=== PATIENT | male | born 1950 | race Caucasian/White ===

== ENCOUNTER 2024-09-01 20:58 | Inpatient (IN) | payer MEDICARE, OTHER, SELFPAY ==
[2024-09-01] VITALS (7 sets, daily range): BP systolic 134–170; BP diastolic 69–111; BMI 32.1; BMI 30.1
--- NOTE | 2024-09-01 15:53 | ED.GENMED ---
ED Provider Triage
<Awilda Yoon PA-C - Last Filed: 09/01/24 16:02>
-
Patient seen by provider in Triage?: Seen in Triage
Attestation: A medical screening examination has been initiated by a qualified medical provider. Based on the assessment performed at this time, it has been determined that an emergent medical condition may exist and the patient has been informed
that further medical evaluation and possible additional diagnostic testing may be needed.
HPI: 73yoM here after a syncopal episode about 1 hour ago. He does not remember what happened. 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 He does not remember how he got there. Blood coming from head and
coworker stated he was disoriented. 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
GENERAL: Alert , in no apparent distress
EYE: No visual abnormalities.
NECK: Trachea midline
ENT: No visible abnormalities.
LUNGS: No acute respiratory distress
NEUROLOGICAL: Alert and oriented
SKIN: Skin intact. No visible changes.
MUSCULOSKELETAL: Moving extremities normally
PSYCH: Normal and appropriate interaction.
This is a medical evaluation conducted in person to initiate diagnostic evaluation and provide initial therapeutics. Please see further documentation by the treating clinician.
Cardiac labs, EKG, and CT head ordered. Pacemaker/ICD interrogated by nursing staff.
History of Present Illness
<Awilda Yoon PA-C - Last Filed: 09/01/24 16:02>
General
Chief Complaint: AICD Problem
Time Seen by Provider: 09/01/24 16:13
<Leo Osborn Jr., PA-C - Last Filed: 09/01/24 19:54>
General
Source: patient and spouse
Exam Limitations: none
Nursing documentation reviewed up to this point in time: agreed with
History of Present Illness
History of Present Illness:
73-year-old male past medical history of cardiomyopathy, CHF, hypertension hyperlipidemia, pacemaker and defibrillator in place presenting to the emergency department after syncopal episode prior to arrival that was very abrupt with no preceding
symptoms. Woke up with some mild chest pain and also hit his head when he fell. He claims this was similar to when he had his AICD go off in the past.
Past History
<Awilda Yoon PA-C - Last Filed: 09/01/24 16:02>
Past History
ED Past Medical History: Arrthythmia, CHF, HTN, Hypercholesterolemia, Valvular disease and Other (sleep apnea, BPH with intermittent urine retention requiring Bravo catheter)
ED Past Surgical History: Cardiac and Other (Hernia repair, mitral valve repair, VT ablation)
Social History
Tobacco: Non-smoker
Alcohol: None
Drug: None
Personal:
Living: with family
Employment: Employed
Family History
Family History: Other (Noncontributory)
Review of Systems
<Leo Osborn Jr., PA-C - Last Filed: 09/01/24 19:54>
Review of Systems
Allergies reviewed?: Yes
All Other Systems: ROS reviewed and negative except as documented in HPI and ROS
Phy Exam
<Leo Osborn Jr., PA-C - Last Filed: 09/01/24 19:54>
Physical Exam
Physical Exam:
GENERAL: Alert , in no apparent distress
EYE: pupils equal and reactive
NECK: Supple, no significant adenopathy.
ENT: o/p clr, mmm.
CARDIAC: Regular rate and rhythm .
LUNGS: Clear breath sounds bilaterally, no acute respiratory distress, no wheezes/rales/rhonchi
ABDOMEN: Soft, without focal tenderness, no r/g, no cvat
NEUROLOGICAL: Alert and oriented, no focal neuro deficits 5-5 upper and lower extremity strength normal sensation when palpating bilaterally normal finger-nose and [id number]-il-kwfu.
SKIN: Warm and dry, skin intact.
MUSCULOSKELETAL: No edema, well perfused.
PSYCH: Normal and appropriate interaction.
Course
<Awilda Yoon PA-C - Last Filed: 09/01/24 16:02>
Orders/Labs/Results
Orders:
Orders
09/01/24 15:27
ECG [Electrocardiogram (*1)] Urgent
Reason for Study: Other
Other Reason for Exam: Defib shock
EKG- Treatment ONCE
09/01/24 15:59
CT Head W/o Iv Contrast Urgent
Comment:
Reason For Exam: Fall w/ head injury
09/01/24 16:03
Interrogate Pacemaker- Treatment ONCE
09/01/24 16:06
Complete Blood Count/With Diff Urgent
Comprehensive Metabolic Panel Urgent
Magnesium Urgent
Troponin I Urgent
09/01/24 16:10
Interrogate Pacemaker- Treatment ONCE
Abnormal Lab Results
09/01/24
16:06
MCH 31.4 H pg
(27.0-31.0)
Absolute Lymphs (auto) 1.0 L 10^3/uL
(1.2-3.4)
Lymphocytes % 16.4 L %
(20.5-51.1)
BUN 24 H mg/dl
(9-20)
Creatinine 1.4 H mg/dL
(0.7-1.3)
Glucose 128 H mg/dl
(70-99)
09/01/24 16:06
09/01/24 16:06
Vital Signs
Initial and Last Documented VS:
Initial Vital Signs
Temp Pulse Resp BP Pulse Ox
97.9 F 48 19 170/111 97
09/01/24 15:36 09/01/24 15:36 09/01/24 15:36 09/01/24 15:36 09/01/24 15:36
Last Documented Vital Signs
Temp Pulse Resp BP Pulse Ox
98.8 F 75 20 155/81 98
09/01/24 16:00 09/01/24 18:36 09/01/24 18:36 09/01/24 18:36 09/01/24 16:00
<Leo Osborn Jr., PA-eTe - Last Filed: 09/01/24 19:54>
Orders/Labs/Results
Orders:
Orders
09/01/24 15:27
ECG [Electrocardiogram (*1)] Urgent
Reason for Study: Other
Other Reason for Exam: Defib shock
EKG- Treatment ONCE
09/01/24 15:59
CT Head W/o Iv Contrast Urgent
Comment:
Reason For Exam: Fall w/ head injury
09/01/24 16:03
Interrogate Pacemaker- Treatment ONCE
09/01/24 16:06
Complete Blood Count/With Diff Urgent
Comprehensive Metabolic Panel Urgent
Magnesium Urgent
Troponin I Urgent
09/01/24 16:10
Interrogate Pacemaker- Treatment ONCE
Abnormal Lab Results
09/01/24
16:06
MCH 31.4 H pg
(27.0-31.0)
Absolute Lymphs (auto) 1.0 L 10^3/uL
(1.2-3.4)
Lymphocytes % 16.4 L %
(20.5-51.1)
BUN 24 H mg/dl
(9-20)
Creatinine 1.4 H mg/dL
(0.7-1.3)
Glucose 128 H mg/dl
(70-99)
09/01/24 16:06
09/01/24 16:06
Vital Signs
Initial and Last Documented VS:
Initial Vital Signs
Temp Pulse Resp BP Pulse Ox
97.9 F 48 19 170/111 97
09/01/24 15:36 09/01/24 15:36 09/01/24 15:36 09/01/24 15:36 09/01/24 15:36
Last Documented Vital Signs
Temp Pulse Resp BP Pulse Ox
98.8 F 75 20 155/81 98
09/01/24 16:00 09/01/24 18:36 09/01/24 18:36 09/01/24 18:36 09/01/24 16:00
<Leo Osborn Jr., PA-C - Last Filed: 09/01/24 19:54>
MDM/Problems Addressed
MDM/Problems Addressed:
73-year-old male presenting to the emergency department today after syncopal episode. Lost consciousness abruptly with no preceding symptoms. Pacemaker interrogated showing episode of V-fib with 1 shock delivered. Back into normal rhythm after.
Vital signs normal here labs unremarkable other than slightly elevated creatinine level of 1.[address] normal. Case discussed with cardiology. Admitted to medicine service.
<Leo Osborn Jr., PA-C - Last Filed: 09/01/24 19:54>
*Critical Care Note
Total Time (30-74mins, 75-104mins- exclusive of procedures): Not Applicable
ED Attending Note
<Awilda Yoon PA-C - Last Filed: 09/01/24 16:02>
-
Portions of this chart may have been created with voice recognition software.� Occasional wrong word or��sound alike� substitutions may have occurred due to the inherent limitations of voice recognition software.
Discharge Plan
Departure
Patient Disposition: Admit
Date of Disposition: 09/01/24
Time of Disposition: 19:53
Admit to: Telemetry
Admit to doctor: Filippo
Presentation/result/management discussed w/ accepting MD/DO: Hospitalist
Patient with high blood pressure during this ER visit?: No
Condition: Good
Covid-19: Not Applicable
Discharge Problem:
Ventricular fibrillation
Prescriptions:
No Action
atorvastatin 20 MG tablet
10 mg PO DAILY
Patient Comments:
acetaminophen 325 MG tablet
650 mg PO Q6HPRN PRN (Reason: mild pain, fever, headache) 0RF
Curamin
1,800 mg PO BID
lisinopril 10 MG tablet
20 mg PO BID
echinacea [Immunacea] 480 ML liquid
1 applic topical DAILYPRN PRN (Reason: skin spot healing )
carvedilol [Coreg] 25 MG tablet
25 mg PO BID
aspirin 81 MG tablet,delayed release (DR/EC)
81 mg PO DAILY
tamsulosin [Flomax] 0.4 MG capsule
0.4 mg PO HS
tamsulosin 0.4 MG capsule
0.4 mg PO HS 0RF
dofetilide 250 MCG capsule
250 mcg PO Q12 Qty: 60 11RF
amoxicillin-pot clavulanate 1 TABLET tablet
1 tab PO Q12 Qty: 14 0RF
cefuroxime axetil 500 mg tablet
500 mg PO BID 7 Days Qty: 14 0RF
amoxicillin-pot clavulanate 875-125 mg tablet
1 tab PO BID 7 Days Qty: 14 0RF
Referrals:
Mohini Moser MD [Family Provider] -
Interventions
Interventions:
*Risk Screen - Suicide Last Done: 09/01/24 16:31
*General Assessment Last Done: 09/01/24 16:28
*Neglect/Abuse Screening Last Done: 09/01/24 16:32
*ED COVID-19 Vaccine History Last Done: 09/01/24 16:27
ED- Cardiac Assessment Last Done: 09/01/24 16:29
Discharge Date and Time
Print Language: MALAYSIAN
[2024-09-01 16:13] LABS: % Basophils 0.5 % (0-2); % Eosinophils 0.8 % (0-6); % Immature Granulocytes 0.3 % (0-0.5); % Lymphocytes 16.4 % (20.5-51.1); % Monocytes 7.3 % (1.7-9.3); % Neutrophils 74.7 % (42.2-75.2); Absolute Eosinophils 0.1 10^3/uL (0-0.7); Absolute Monocytes 0.4 10^3/uL (0.1-0.6); Absolute Neutrophils 4.5 10^3/uL (1.4-6.5); Hematocrit 43.8 % (39.0-52.0); Hemoglobin 15.4 g/dL (13.0-18.0); Mean Corp Hgb Conc. 35.2 g/dL (33.0-37.0); Mean Corpuscular Hgb 31.4 pg (27.0-31.0); Mean Corpuscular Volume 89.4 fL (80.0-94.0); Mean Platelet Volume 9.5 fL (7.4-10.4); Nucleated Red Blood Cells % 0 % (-); Platelet Count 159 10^3/uL (130-400); Red Cell Dist. Width 12.7 % (11.5-14.5); White Blood Cell Count 6.1 10^3/uL (4.8-10.8)
[2024-09-01 16:32] LABS: ALT (SGPT) 37 U/L (0-50); AST (SGOT) 47 U/L (17-59); Albumin 4.5 g/dl (3.5-5.0); Alkaline Phosphatase 72 U/L (38-126); Blood Urea Nitrogen 24 mg/dl (9-20); Calcium 9.4 mg/dl (8.4-10.2); Carbon Dioxide 28 mmol/L (22-30); Chloride 103 mmol/L (98-107); Estimated Creatinine Clearance 58 ml/min; Glucose 128 mg/dl (70-99); Magnesium 1.7 mg/dl (1.6-2.3); Potassium 4.4 mmol/L (3.5-5.1); Sodium 141 mmol/L (135-145); Total Bilirubin 0.8 mg/dl (0.2-1.3); Total Protein 6.8 g/dl (6.3-8.2); eGFR 53.74
[2024-09-01 16:43] LABS: Troponin I 0.018 ng/ml
--- NOTE | 2024-09-01 19:52 | HPS.HSE ---
Addendum entered and electronically signed by Danielito Crawford MD 09/01/24 20:40:
I saw and examined the patient.
The CLAY ROASTER or PA's note was reviewed and I agree with the note.
Comment:
73M HX chr HFrEF, CM, GASTON, MVR, PVC , induced ventricular fibrillation on AICD presented to us with syncopal episode.
Syncope likely from VF : S/p AICD shock
HX PVC-induced VF requiring ICD shocks, 06/2020.
HX substrate-based VT ablation, 10/05/2020.
- NEG HCT
-EKG: in sinus rhythm atrial-sensed ventricular-paced complexes wih frequent PVCs
- c/w Tikosyn
- c/w ATTENDANT HONOR BAR metoprolol
- DCA card consulted
DVT Px: LMWH
Full code
IP TLM
Original Note:
Family Physician
-
Family Physician: Mohini Moser
Chief Complaint
-
syncopal episode
History of Present Illness
73yoM with PMh for htn, GASTON, mitral valve repair, cardiomyopathy, CHF, PVC induced ventricular fibrillation on AICD presented to us with syncopal episode. pacer interrogated in ER showing ventricular fibrillation prior to the syncopal episode.his
AICD was fired once. since the fall, he has mid sternum to left sided chest pain which is worse with movement. abrasion noted on his forehead and b/l knee. denied any NOWAK. denied fever, chills, sob. denied abdominal pain,n,v,d. denied dysuria or
hematuria.
admitting for further management.
Medical History
Past Medical History
Past Medical History: Reports Other
Additional Past Medical History:
GASTON
pulmonary HTN
BPH
left pleural effusion
HTN
ischemic cardiomyopathy
cardiomyopathy
Past Surgical History: Reports Other
Additional Past Surgical History:
b/k knee replacement
hernia surgery
cardiac ablation
thoracentesis
Social History
Tobacco: Non-smoker
Alcohol: None
Drug: None
Personal:
Living: With Family
Employment: Employed
Family History
Family History: Not pertinent
Allergies / Home Medications
Allergies reflects when Allergies were last updated in [employer].
Home Medications with original date entered in [employer]
Allergy/Medication List:
Allergies
Allergy/AdvReac Type Severity Reaction Status Date / Time
No Known Allergies Allergy Verified 09/01/24 15:41
Home Medications
atorvastatin 20 mg tablet 10 mg PO DAILY High cholesterol 12/10/18
acetaminophen 325 mg tablet 650 mg (2 x 325 mg) PO Q6HPRN PRN mild pain, fever, headache 12/23/18
Curamin 1,800 mg PO BID Supplement 07/16/19
aspirin 81 mg tablet,delayed release 81 mg PO DAILY Blood clot prevention/tx 04/18/21
carvedilol 25 mg tablet (Coreg) 25 mg PO BID Blood pressure 04/18/21
echinacea (Immunacea) 1 applic topical DAILYPRN PRN skin spot healing 04/18/21
lisinopril 10 mg tablet 20 mg PO BID Blood pressure 04/18/21
tamsulosin 0.4 mg capsule (Flomax) 0.4 mg PO HS Urinary issue 04/18/21
dofetilide 250 mcg capsule 250 mcg PO Q12 Arrhythmia #60 caps 04/20/21
tamsulosin 0.4 mg capsule 0.4 mg PO HS 04/20/21
amoxicillin 875 mg-potassium clavulanate 125 mg tablet 1 tab PO Q12 #14 tabs 11/12/21
cefuroxime axetil 500 mg tablet 500 mg PO BID 7 days #14 tabs 09/15/22
amoxicillin 875 mg-potassium clavulanate 125 mg tablet 1 tab PO BID 7 days #14 tabs 11/21/23
Review of Systems
-
Constitutional: Reports No Symptoms
EENT: Reports No Symptoms
Respiratory: Reports No Symptoms
Cardiac: Reports No Symptoms
Abdomen/GI: Reports No Symptoms
: Reports No Symptoms
Musculoskeletal: Reports No Symptoms
Skin: Reports No Symptoms
Neurological: Reports No Symptoms
Endocrine: Reports No Symptoms
Hematologic/Lymphatic: Reports No Symptoms
Psych: Reports No Symptoms
Physical Exam
Vital Signs
Vital Signs
Temp Pulse Resp BP Pulse Ox
98.8 F 75 20 155/81 98
09/01/24 16:00 09/01/24 18:36 09/01/24 18:36 09/01/24 18:36 09/01/24 16:00
Physical Exam
General: Well Developed, Well Nourished and No Apparent Distress
HEENT: NormoCephalic, Moist mucous membranes and Atraumatic
Respiratory: Clear
Cardiac: S1/S2 and Regular Rhythm; No Murmur or Rub
GI: Soft, Non Tender, Non Distended and Normal Bowel Sounds; No Organomegaly
Rectal: Deferred by Provider
Musculoskeletal: No Clubbing, No Cyanosis and No Edema
Skin: No Rash
Neuro: AO x 3 and Nonfocal/grossly intact
Psych: Calm
Laboratory Results
-
09/01/24 16:06
09/01/24 16:06
Laboratory Results
Total Bilirubin 0.8 mg/dl (0.2-1.3) 09/01/24 16:06
AST 47 U/L (17-59) 09/01/24 16:06
ALT 37 U/L (0-50) 09/01/24 16:06
Alkaline Phosphatase 72 U/L (38-126) 09/01/24 16:06
Troponin I 0.018 ng/ml 09/01/24 16:06
Data Reviewed
-
CT Scan: Report Reviewed by me
Lab Data: Labs Reviewed by me
Impression/Plan
-
# syncope likely from ventricular fib
#s/p AICD shock
#History of PVC-induced ventricular fibrillation requiring ICD shocks, 06/2020.
#History of substrate-based VT ablation, 10/05/2020.
-cardiology consulted
-Head CT with No acute intracranial abnormality noted.Minimal periventricular small vessel seen disease.Old left thalamic lacunar infarcts.
-EKG with SINUS RHYTHM WITH atrial-sensed ventricular-paced complexes WITH FREQUENT PREMATURE VENTRICULAR COMPLEXES
-Tikosyn continued
-metoprolol continued
#right sided chest pain since the fall likely musculoskeletal
-Tylenol prn for pain
-chest x ray pending.
#cardiomyopathy
#chronic heart failure with preserved EF
#s/p Mitral valve repair
#pulmonary HTn
-ECHO in 2020 with EF of 30-35%
#acute kidney injury likely dehydration
-cr 1.4,BUn 24
-normal saline continued
-BMp in am
#GASTON
-CPAP
#HTn
-hold lisinopril due to Kendra
#HLD
-statin continued
#BPH
-Flomax continued
#DVT prophylaxis
=heparin sq
#CODE status
-full code
[2024-09-01] MEDS: NSS 1000 IV (23:11)
[2024-09-01] MEDS: FLOMAX 0.4 MG PO (23:17)
[2024-09-01] MEDS: LOPRESSOR 50 MG PO (23:17)
[2024-09-01] MEDS: TIKOSYN 250 MCG PO (23:18)
[2024-09-01] MEDS: TIKOSYN PO (23:18)
[2024-09-01] MEDS: TYLENOL 650 MG PO (23:20)
[2024-09-02] VITALS (7 sets, daily range): BP systolic 102–158; BP diastolic 60–93; BMI 29.9
--- NOTE | 2024-09-02 | PTCARENOTE ---
Pt rec'd from ED awake,alert ambulating safely in room. gait steady. Pt placed on fall precautions secondary to fall pre hospital. A/V Paced on telemetry with freq pvc's. PM medications given and IVF started. Pt with c/o sternal discomfort from
fall. Pt also reports h/a behind his eyes. Pt states ' I always get a bad h/a for 24 hrs after my defibrillator goes off'. Tylenol administered.
--- NOTE | 2024-09-02 03:57 | DOWNTIME ---
There was a gauzz Client Retail Link Analyst Downtime on 09/02/2024 from 0100 to 09/02/2024 at 0355. Downtime documentation of patient's care, including medication administrations, has been reconciled in the electronic record per guidelines. Refer to the
patient's paper chart under the miscellaneous tab to see printed paper medication records and downtime forms.
--- NOTE | 2024-09-02 05:22 | PTCARENOTE ---
Pt with no complaints this am. AV paced with pvc's noted. OOB at this time reading chf educational booklet.
[2024-09-02 05:27] LABS: Hematocrit 39.2 % (39.0-52.0); Hemoglobin 13.7 g/dL (13.0-18.0); Mean Corp Hgb Conc. 34.9 g/dL (33.0-37.0); Mean Corpuscular Hgb 32.2 pg (27.0-31.0); Mean Platelet Volume 9.6 fL (7.4-10.4); Platelet Count 146 10^3/uL (130-400); Red Blood Cell Count 4.26 10^6/uL (4.70-6.10); Red Cell Dist. Width 12.7 % (11.5-14.5)
[2024-09-02 05:42] LABS: Blood Urea Nitrogen 21 mg/dl (9-20); Calcium 8.7 mg/dl (8.4-10.2); Carbon Dioxide 29 mmol/L (22-30); Chloride 104 mmol/L (98-107); Estimated Creatinine Clearance 79 ml/min; Glucose 96 mg/dl (70-99); Sodium 142 mmol/L (135-145); eGFR > 60.00
--- NOTE | 2024-09-02 07:40 | CON.CAR ---
Addendum entered and electronically signed by Maikol Flores DO 09/02/24 13:03:
I saw and examined the patient.
The Building Pressure Washer's note was reviewed and I agree with the note.
Comment:
Plan:
Episode of VF with ICD shock X 1. Back to v pacing.
Head CT negative for acute changes
Troponins unremarkable. Last cardiac catheterization 2018 with no significant coronary artery disease.
Discussed with EP, options for rhythm control. Remains with frequent PVCs on telemetry. Increase Tikosyn to 500 mcg every 12 hours and monitor QTc. Rhythm has been paced. He did report some degree of tremor with Tikosyn however tremors were
worse with amiodarone. If the increased Tikosyn dosing fails to suppress recurrent ventricular arrhythmia, he could be considered for repeat VT ablation. Repeat ablation effectiveness may be affected by the fact that suspected scar responsible for
recurrent ventricular arrhythmia likely in close proximity to MV ring repair.
Resume lisinopril as creatinine improved.
Discussed with family at bedside.
Discussed with nursing.
Addendum entered and electronically signed by Abby Mcginnis PA-C 09/02/24 09:52:
confirmed with [employer] rep - ICD is MRI compatible
Original Note:
Consultation
Consultation Request
Date/Time Consultation Performed: 09/02/24
Requesting Provider: Dr. Crawford
Performing Provider: Abby Mcginnis PA-C for Dr. Flores
Reason for Consultation: VF, ICD shock
Medical History
-
Chief Complaint: syncope
History of Present Illness:
Patient is a 73 yo M with PMH of NICM, history of mitral valve repair in 2019, chronic LBBB, s/p BIV ICD, VT s/p ablation 2019, HTN, HLD, GASTON on BIPAP, BPH who presented to after a syncopal episode. He lost consciousness and fell, hitting his
head. He reports as with each prior time he has been shocked by his device (5 total), he has not had any prodrome. Last shock 12/09/22. Upon device interrogation in ER, noted to have VF which was successfully terminated with 1 shock. His VT is felt
to be scar based near prior mitral valve ring. He is chronically on tikosyn 250mcg Q12H. He had previously been on amiodarone however had significant tremor and this was stopped. He reports he does have a tremor with tikosyn however not as
significant. Denies CP, SOB, palpitations. He has been active as a [employer] without issues. States he has been feeling well. Trop 0.018. Last cath from 2018 with nonobstructive CAD.
PMH:
Recovered NICM by echo 02/2023
s/p BIV ICD
VT/VF s/p VT ablation 2019
History of MV repair 2018
Chronic LBBB
HTN
HLD
GASTON on BiPAP
BPH
Past Medical History
Past Medical History: Other (in HPI)
Social History
Tobacco: Non-Smoker
Alcohol: Occasional
Personal:
Living: With Family
Employment: Employed ([employer])
Family History
Family History: Other (CAD, HTN, GASTON, PPM, CHF)
Allergies / Home Medications
Allergy/AdvReac Type Severity Reaction Status Date / Time
No Known Allergies Allergy Verified 09/01/24 15:41
�Medication �Instructions �Recorded �Confirmed �Type
tamsulosin 0.4 mg capsule (Flomax) 0.4 mg PO BID Urinary issue 04/18/21 09/01/24 History
Lactobac no.2-Bifidobac no.1-S. 1 cap PO DAILY 09/01/24 09/01/24 History
thermo 112.5 billion cell capsule
(Visbiome)
Nonyx 1 applic topical BID both big toes 09/01/24 09/01/24 History
aspirin 325 mg tablet 162.5 mg PO DAILY 09/01/24 09/01/24 History
atorvastatin 10 mg tablet 10 mg PO DAILY 09/01/24 09/01/24 History
bacitracin 500 unit/gram topical 1 applic topical DAILYPRN PRN skin 09/01/24 09/01/24 History
ointment spots
dofetilide 250 mcg capsule 250 mcg PO Q12H Arrhythmia 09/01/24 09/01/24 History
finasteride 5 mg tablet 5 mg PO DAILY 09/01/24 09/01/24 History
lisinopril 20 mg tablet 20 mg PO BID 09/01/24 09/01/24 History
metoprolol succinate 50 mg 50 mg PO BID 09/01/24 09/01/24 History
tablet,extended release 24 hr
omega 4-gqt-bdd-fish oil 1,000 mg 1 cap PO DAILY 09/01/24 09/01/24 History
(120 mg-180 mg) capsule (Fish Oil)
turmeric 400 mg capsule 400 mg PO BID 09/01/24 09/01/24 History
Review of Systems
-
History Source: Patient
All other systems: Negative unless noted
Physical Exam
Vital Signs
Temp Pulse Resp BP Pulse Ox
98.0 F 89 20 139/78 98
09/02/24 04:53 09/02/24 05:00 09/02/24 04:53 09/02/24 04:53 09/02/24 04:53
Lab Results
09/02/24 05:01
09/02/24 05:01
Troponin I 0.018 ng/ml 09/01/24 16:06
Physical Exam
General: No Apparent Distress and Comfortable
HEENT: Normocephalic, Anicteric and Moist Mucous Membranes
Respiratory: Clear and Non Labored Respirations
Cardiac: S1/S2 and Regular Rhythm
GI: Soft, Non Tender, Non Distended and Normal Bowel Sounds
Musculoskeletal: No Clubbing, No Cyanosis and No Edema
Skin: Warm and Dry
Neuro: AO x 3
Impression / Plan
-
Primary Environmental Geologist: Dr. Boogie of [facility]
Primary EP: Dr. Fonseca
Assessment:
Syncope
VF s/p ICD shock x1
MCKINLEY, improved
NICM, recovered by echo 02/2023
s/p [employer] BIV ICD
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
Chronic tikosyn therapy
History of MV repair 2018
Pulm HTN
Chronic LBBB
HTN
HLD
GASTON on BiPAP
BPH
ECHO 04/2021: EF 30-35%, global hypokinesis, mild cLVH, stage 2 diastolic dysfunction, s/p MV repair with peak/mean gradients 13/5mmHg, MAC, mild MR, aortic sclerosis, mild TR, PAP 27mmHg
ECHO 02/27/23 at [facility]: EF 50%, moderate to severe LVH, ICD wire in right heart, moderately dilated LA, severely thickened NCC with trivial aortic regurgitation, normally functioning #28 mitral valve ring repair, RVSP 33.4 mmHg
Plan:
-Patient presented with episode of syncope secondary to VF status post ICD shock x 1. This was successful in restoring A sensed V paced rhythm. He denies having prodrome
-Head CT without acute abnormalities
-Records obtained and reviewed from [facility] cardiology including last echo 02/27/2023, device check 06/27/2024, EKG and office visit 07/29/2024.
-Reviewed with EP. Troponin detectable but within normal range x 2. Last cath from 2019 with no significant coronary disease. Remains with frequent PVCs on telemetry. Will attempt to increase Tikosyn to 500 mcg every 12 hours. Follow QTc,
although paced rhythm. Of note he does report some degree of tremor with current dose of Tikosyn, however reported worse tremor with prior amiodarone use.
-Also discussed repeat VT ablation, although may be technically challenging given suspected VT/VF from scar at mitral valve ring
-Will discuss continued ability to drive
-On arrival creatinine was 1.4 and outpatient lisinopril held. ? Possible component of dehydration. Now Cr normalized, likely will resume
Data Reviewed
-
EKG: Tracing Personally Visualized and interpreted
Radiology: Report Reviewed by me
CT Scan: Report Reviewed by me
Medical Tests (Nuc Med, Echo etc): Report Reviewed by me
Labs: Labs Reviewed by me
Old Records: Requested and Reviewed
[2024-09-02] MEDS: ASPIRIN 162.5 MG PO (08:28)
[2024-09-02] MEDS: TIKOSYN 250 MCG PO (08:28)
[2024-09-02] MEDS: FLOMAX 0.4 MG PO ×2 (08:28→20:02)
[2024-09-02] MEDS: VISBIOME 1 CAP PO (08:30)
[2024-09-02] MEDS: LIPITOR 10 MG PO (08:30)
[2024-09-02] MEDS: TOPROL XL 50 MG PO ×2 (08:30→20:02)
[2024-09-02] MEDS: HEPARIN 5000 UNITS SC ×2 (08:31→20:02)
--- NOTE | 2024-09-02 09:18 | W.PN.HOSP.TC ---
Today's Communication/Plan
-
Resume diet
Stop IV fluids
Resume lisinopril
Assessment / Plan
Assessment / Plan
Gen-AAOx3, NAD
HEENT-NC, AT, anicteric, clear oral mm
Neck-supple
CV-reg, no M, +S1/S2
Lungs-clear B/L
Abd-soft, NT, ND
Ext-no edema
Musculoskeletal-no cyanosis, clubbing
Skin-warm and dry
Neuro-grossly non-focal
Psych-calm, cooperative
Syncope -due to recurrent ventricular fibrillation. ICD shocked. Discussed with cardiology. Plan to double dose of Tikosyn and monitor for 48 hours. Resume diet. Outpatient EP follow-up. Discussed with cardiology, Dr. Flores.
History of of PVC induced ventricular fibrillation requiring ICD shocks
MCKINLEY -possibly due to volume depletion. MCKINLEY resolved. Resume lisinopril.
Essential hypertension -blood pressure running high. Resume lisinopril.
Nonischemic cardiomyopathy/chronic heart failure preserved EF -stable.
History of mitral valve repair -2018.
GASTON -continue BiPAP nightly and with naps.
Obesity due to excess calories
Full code
Anticipated Discharge: > 48 hours
Subjective/Interval History
-
Date of Service: September 02, 2024
Patient seen and examined. No complaints.
Objective Data
-
Labs:
Laboratory Results
09/02/24
05:01
WBC 6.0
Hgb 13.7
Hct 39.2
Plt Count 146
Sodium 142
Potassium 4.0
Chloride 104
Carbon Dioxide 29
BUN 21 H
Creatinine 0.9
Glucose 96
Calcium 8.7
Vital Signs:
Vital Signs
Temp Pulse Resp BP Pulse Ox
98.1 F 89 20 139/78 98
09/02/24 07:47 09/02/24 05:00 09/02/24 07:47 09/02/24 04:53 09/02/24 07:47
I&O
09/01/24 09/02/24 09/03/24
06:59 06:59 06:59
Intake Total 640 / 640
Balance 640 / 640
Review of Systems
-
History Source: Patient
All other systems: Reviewed and negative
[2024-09-02] MEDS: PROSCAR 5 MG PO (09:56)
[2024-09-02] MEDS: ZESTRIL 20 MG PO ×2 (09:56→20:03)
--- NOTE | 2024-09-02 11:40 | CM ---
CM following for DC planning needs.
Met w/ patient at bedside to complete initial assessment.
Pt. shares that he resides w/ spouse in a private, 2 story home.
Functionally, patient is indep. w/ ADLs, mobility without the use of any assisted device.
Pt. has BIPAP at home and uses regularly.
Anticipated DC plan is for home, no needs.
CM to follow.
[2024-09-02] MEDS: NSS IV (13:15)
[2024-09-02] MEDS: TYLENOL 650 MG PO ×2 (14:20→20:03)
--- NOTE | 2024-09-02 15:05 | CARDSERVLU ---
Echocardiogram with Lumason completed after protocol screening completed. Allergies verified.
Patent IV site: ___L arm__
IV site flushed with 0.9% NaCl pre and post administration.
Diluted bolus method utilized to enhance visualization of ventricular blas.
Total volume given: __5.0__ mL
Patient tolerated all procedures well without complications.
--- NOTE | 2024-09-02 18:00 | PTCARENOTE ---
Pt received this am with no c/o of any chest pain, dizziness or lightheadedness. OOB ad mirna and ambulating in the hallway. C/o of a headache, relief with tylenol.
[2024-09-02] MEDS: TIKOSYN 500 MCG PO (20:02)
--- NOTE | 2024-09-02 22:19 | PTCARENOTE ---
1st dose of 500mcg Tikosyn given followup EKG- QTC : 576. Pt AV paced w/ pvcs. 28 beat run of pvcs ~ 2100- strip placed in chart.
[2024-09-03 03:37] VITALS: BP 137/71
[2024-09-03 04:37] LABS: Blood Urea Nitrogen 19 mg/dl (9-20); Calcium 8.9 mg/dl (8.4-10.2); Carbon Dioxide 29 mmol/L (22-30); Chloride 106 mmol/L (98-107); Estimated Creatinine Clearance 79 ml/min; Glucose 96 mg/dl (70-99); Potassium 4.2 mmol/L (3.5-5.1); Sodium 142 mmol/L (135-145); eGFR > 60.00
[2024-09-03 04:44] LABS: Troponin I 0.015 ng/ml
[2024-09-03 07:41] VITALS: BP 140/86
[2024-09-03] MEDS: ASPIRIN 162.5 MG PO (08:47)
[2024-09-03] MEDS: FLOMAX 0.4 MG PO ×2 (08:48→19:43)
[2024-09-03] MEDS: PROSCAR 5 MG PO (08:49)
[2024-09-03] MEDS: VISBIOME 1 CAP PO (08:49)
[2024-09-03] MEDS: TOPROL XL 50 MG PO ×2 (08:50→19:43)
[2024-09-03] MEDS: LIPITOR 10 MG PO (08:50)
[2024-09-03] MEDS: ZESTRIL 20 MG PO ×2 (08:50→19:43)
--- NOTE | 2024-09-03 09:10 | W.PN.CARDCBS ---
Addendum entered and electronically signed by Maikol Flores DO 09/03/24 12:25:
I saw and examined the patient.
The Home Service Demonstrator's note was reviewed and I agree with the note.
Comment:
Plan:
Continue Tikosyn loading 500 mcg twice daily.
QTc remains stable, reviewed with EP
Outpatient EP evaluation to discuss repeat VT ablation given recurrent VT.
ICD functioning appropriately.
Echo reviewed with recurrent cardiomyopathy EF 30 to 35%. Stable mitral valve repair with mean gradient 6 mmHg. Mild aortic stenosis with mean gradient 13 mmHg and mild AR
Consider Aldactone as outpatient as part of GDMT for cardiomyopathy.
Possible discharge tomorrow if continues to improve and EKG remains stable.
Original Note:
Today's Communication / Plan
-
continue tikosyn 500mcg
follow rhythm and QTc
consider addition of aldactone
OP EP eval to discuss repeat VT ablation
for possible DC in AM
Impression / Plan
-
Primary Lead Former: Dr. Boogie of [facility]
Primary EP: Dr. Fonseca
Assessment:
Syncope
VF s/p ICD shock x1
MCKINLEY, improved
NICM, recovered by echo 02/2023
s/p St Koffi BIV ICD
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
Chronic tikosyn therapy
History of MV repair 2018
Pulm HTN
Chronic LBBB
HTN
HLD
AGSTON on BiPAP
BPH
ECHO 04/2021: EF 30-35%, global hypokinesis, mild cLVH, stage 2 diastolic dysfunction, s/p MV repair with peak/mean gradients 13/5mmHg, MAC, mild MR, aortic sclerosis, mild TR, PAP 27mmHg
ECHO 02/27/23 at [facility]: EF 50%, moderate to severe LVH, ICD wire in right heart, moderately dilated LA, severely thickened NCC with trivial aortic regurgitation, normally functioning #28 mitral valve ring repair, RVSP 33.4 mmHg
ECHO 09/02/24: EF 30 to 35%, global hypokinesis, mild concentric LVH, pacer wire in right heart, mild biatrial enlargement, status post mitral valve repair with peak/mean gradients 13/6 mmHg, mild MR, mild with peak/mean gradients 21/13 mmHg,
mild AR
Plan:
-Patient presented with episode of syncope secondary to VF status post ICD shock x 1. This was successful in restoring A sensed V paced rhythm. He denies having prodrome
-Head CT without acute abnormalities
-had 28 beat run of NSVT last evening, however only occasional PVCs couplets since. K/mag stable
-corrected QTc appears stable, EKGs reviewed with EP. continue tikosyn 500mcg Q12H
-he does report some increased 'jittery feelings.' he reported a mild tremor on 250mcg of tikosyn and also had tremor on amiodarone in past.
-echo 09/02 with EF back down to 30-35%. possibly secondary to stunned myocardium from recent shock. will need repeat echo as OP. continue toprol, lisinopril. consider addition of aldactone however presented with MCKINLEY so may hold off for now
-will arrange for OP EP eval to discuss repeat VT ablation
-Will discuss continued ability to drive
-d/w nursing
Progress Note - Lead Former
Subjective
Date of Service: September 03, 2024
reports some increased 'jittery feelings'
Objective
Labs:
09/02/24 05:01
09/03/24 03:45
Labs
Hgb 13.7 g/dL (13.0-18.0) 09/02/24 05:01
Hct 39.2 % (39.0-52.0) 09/02/24 05:01
Plt Count 146 10^3/uL (130-400) 09/02/24 05:01
Sodium 142 mmol/L (135-145) 09/03/24 03:45
Potassium 4.2 mmol/L (3.5-5.1) 09/03/24 03:45
BUN 19 mg/dl (9-20) 09/03/24 03:45
Creatinine 0.9 mg/dL (0.7-1.3) 09/03/24 03:45
Glucose 96 mg/dl (70-99) 09/03/24 03:45
Troponins
09/01/24 09/02/24 09/03/24
16:06 08:47 03:45
Troponin I 0.018 0.030 0.015
Vital Signs and I&O:
Vital Signs
Temp Pulse Resp BP Pulse Ox
98 F 87 20 137/71 94
09/03/24 07:38 09/03/24 06:00 09/03/24 07:38 09/03/24 03:37 09/03/24 07:38
Vital Signs
Temp Pulse Resp BP Pulse Ox
98 F 87 20 137/71 94
09/03/24 07:38 09/03/24 06:00 09/03/24 07:38 09/03/24 03:37 09/03/24 07:38
Intake & Output
09/01/24 09/02/24 09/03/24 09/04/24
07:59 07:59 07:59 07:59
Intake Total 640 / 640
Balance 640 / 640
Physical Exam
Physical Exam
GEN: No distress, awake, alert, oriented x3. sitting in chair
HEENT: supple, anicteric, mmm, eomi
LUNGS: CTA B/L, no wheezes/rales
CV: Reg, S1/S2, no murmur
ABD: soft, BS+, NT/ND
EXT: No cyanosis, clubbing, edema
NEURO: Gross non-focal
SKIN: Warm, pink, dry. No rash
[2024-09-03] MEDS: HEPARIN 5000 UNITS SC ×2 (09:23→19:43)
[2024-09-03] MEDS: TIKOSYN 500 MCG PO ×2 (10:04→21:07)
--- NOTE | 2024-09-03 11:06 | CM ---
CM following for DC planning needs.
Met w/ patient while ambulating in the halls. He is feeling well.
Anticipate home without needs once stable.
Will cont. to follow.
[2024-09-03 11:26] VITALS: BP 125/70
--- NOTE | 2024-09-03 13:52 | W.PN.HOSP.TC ---
Today's Communication/Plan
-
Continue current care
Assessment / Plan
Assessment / Plan
Gen-AAOx3, NAD
HEENT-NC, AT, anicteric, clear oral mm
Neck-supple
CV-reg, no M, +S1/S2
Lungs-clear B/L
Abd-soft, NT, ND
Ext-no edema
Musculoskeletal-no cyanosis, clubbing
Skin-warm and dry
Neuro-grossly non-focal
Psych-calm, cooperative
Syncope -due to recurrent ventricular fibrillation. ICD shocked. Continue Tikosyn 500 mg every 12, monitor QTc per cardiology. Outpatient EP follow-up. Discussed with cardiology, Dr. Flores.
History of of PVC induced ventricular fibrillation requiring ICD shocks
MCKINLEY -possibly due to volume depletion. MCKINLEY resolved. Resumed lisinopril.
Essential hypertension -blood pressure running high. Resumed lisinopril.
Nonischemic cardiomyopathy/chronic heart failure preserved EF -stable.
History of mitral valve repair -2018.
GASTON -continue BiPAP nightly and with naps.
Obesity due to excess calories
Full code
Dispo -potential discharge Saturday if cleared by cardiology.
Anticipated Discharge: Within 24 hours
Subjective/Interval History
-
Date of Service: September 03, 2024
Patient seen and examined. No complaints.
Objective Data
-
Labs:
Laboratory Results
09/03/24
03:45
Sodium 142
Potassium 4.2
Chloride 106
Carbon Dioxide 29
BUN 19
Creatinine 0.9
Glucose 96
Calcium 8.9
Vital Signs:
Vital Signs
Temp Pulse Resp BP Pulse Ox
97.5 F 79 16 125/70 98
09/03/24 11:24 09/03/24 12:00 09/03/24 11:24 09/03/24 11:26 09/03/24 11:26
I&O
09/02/24 09/03/24 09/04/24
06:59 06:59 06:59
Intake Total 640 / 640
Balance 640 / 640
Review of Systems
-
History Source: Patient
All other systems: Reviewed and negative
[2024-09-03 15:33] VITALS: BP 112/56
--- NOTE | 2024-09-03 17:48 | PTCARENOTE ---
Pt ambulating in room and halls, lisseth well, gait steady, no c/o pain or SOB. AV paced on monitor w/ freq PVC's.
[2024-09-03 19:10] VITALS: BP 155/77
[2024-09-03 22:55] VITALS: BP 138/71
--- NOTE | 2024-09-03 23:15 | PTCARENOTE ---
Tikosyn dose #3 administered. EKG obtained. QTC 588. Pt has no c/o pain/discomfort at this time. Currently in bed; call ling w/in reach.
[2024-09-03] MEDS: TYLENOL 650 MG PO (23:34)
[2024-09-04 02:00] VITALS: BP 144/82
[2024-09-04 03:18] LABS: Blood Urea Nitrogen 19 mg/dl (9-20); Calcium 8.9 mg/dl (8.4-10.2); Carbon Dioxide 26 mmol/L (22-30); Chloride 105 mmol/L (98-107); Estimated Creatinine Clearance 89 ml/min; Glucose 95 mg/dl (70-99); Potassium 4.3 mmol/L (3.5-5.1); Sodium 140 mmol/L (135-145); eGFR > 60.00
[2024-09-04] MEDS: TOPROL XL 50 MG PO (08:05)
[2024-09-04] MEDS: ASPIRIN 162.5 MG PO (08:05)
[2024-09-04] MEDS: ZESTRIL 20 MG PO (08:05)
[2024-09-04] MEDS: LIPITOR 10 MG PO (08:05)
[2024-09-04] MEDS: VISBIOME 1 CAP PO (08:07)
[2024-09-04] MEDS: HEPARIN 5000 UNITS SC (08:08)
[2024-09-04] MEDS: TIKOSYN 500 MCG PO (08:08)
[2024-09-04] MEDS: PROSCAR 5 MG PO (08:08)
[2024-09-04] MEDS: FLOMAX 0.4 MG PO (08:13)
[2024-09-04] MEDS: HEPARIN SC (08:17)
[2024-09-04 08:28] VITALS: BMI 30.1
[2024-09-04 08:30] VITALS: BP 138/85
--- NOTE | 2024-09-04 08:52 | W.PN.CARDCBS ---
Addendum entered and electronically signed by Gopi Bazzi DO 09/04/24 16:25:
I saw and examined the patient.
The Heavy Antiarmor Weapons Infantryman's note was reviewed and I agree with the note.
Comment:
APVP on telemetry; PVCs present but overall reduced burden on monitor; no VT
Continue dofetilide 500 mcg BID; QT (manually measured) ~440 ms and stable
Low dose aldcatone (renal function, potassium stable) for CM; BMP 1 week
Cardiac rehab with [facility]
No driving
Stable for DC from CV standpoint, follow-up in office with Dr Fonseca for discussion of possible ablation; routine CV follow-up with Dr Boogie
Original Note:
Today's Communication / Plan
-
continue tikosyn 500mcg Q12H
follow QTc
consider low dose aldactone
BMP in 1 week
OP EP follow up arranged
cardiac rehab at [facility] if candidate
no driving
likely for DC today
Impression / Plan
-
Primary Seismograph Shooter: Dr. Boogie of [facility]
Primary EP: Dr. Fonseca
Assessment:
Syncope
VF s/p ICD shock x1
MCKINLEY, improved
NICM, recovered by echo 02/2023
s/p St Koffi BIV ICD
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
Chronic tikosyn therapy
History of MV repair 2018
Pulm HTN
Chronic LBBB
HTN
HLD
GASTON on BiPAP
BPH
ECHO 04/2021: EF 30-35%, global hypokinesis, mild cLVH, stage 2 diastolic dysfunction, s/p MV repair with peak/mean gradients 13/5mmHg, MAC, mild MR, aortic sclerosis, mild TR, PAP 27mmHg
ECHO 02/27/23 at [facility]: EF 50%, moderate to severe LVH, ICD wire in right heart, moderately dilated LA, severely thickened NCC with trivial aortic regurgitation, normally functioning #28 mitral valve ring repair, RVSP 33.4 mmHg
ECHO 09/02/24: EF 30 to 35%, global hypokinesis, mild concentric LVH, pacer wire in right heart, mild biatrial enlargement, status post mitral valve repair with peak/mean gradients 13/6 mmHg, mild MR, mild with peak/mean gradients 21/13 mmHg,
mild AR
Plan:
-Patient presented with episode of syncope secondary to VF status post ICD shock x 1. This was successful in restoring A sensed V paced rhythm. He denies having prodrome
-Head CT without acute abnormalities
-in mostly av paced rhythm on review of tele overnight. remains with PVCs and occasional couplets/triplets however overall ectopy is improving. no runs of NSVT noted.
-QTc acceptable in paced rhythm. continue tikosyn 500mcg Q12H. plan for DC to home later today if QTc remains stable by 10AM EKG.
-reports his tremor has been stable on increased dose tikosyn. he also has history of significant tremor on amiodarone in past.
-echo 09/02 with EF back down to 30-35%. possibly secondary to stunned myocardium from recent shock. will need repeat echo as OP. continue toprol, lisinopril. consider addition of low dose aldactone however presented with MCKINLEY (Cr 1.4) so will repeat
BMP in 1 week
-OP EP eval arranged to discuss repeat VT ablation
-hold off on driving for now in setting of VF/syncope - will reevaluate in office
-he has asked about candidacy for cardiac rehab. will provide physical script and phone number for [facility] cardiac rehab so he can call and arrange
-d/w nursing
Progress Note - Seismograph Shooter
Subjective
Date of Service: September 04, 2024
no issues overnight
Objective
Labs:
09/02/24 05:01
09/04/24 02:09
Labs
Hgb 13.7 g/dL (13.0-18.0) 09/02/24 05:01
Hct 39.2 % (39.0-52.0) 09/02/24 05:01
Plt Count 146 10^3/uL (130-400) 09/02/24 05:01
Sodium 140 mmol/L (135-145) 09/04/24 02:09
Potassium 4.3 mmol/L (3.5-5.1) 09/04/24 02:09
BUN 19 mg/dl (9-20) 09/04/24 02:09
Creatinine 0.8 mg/dL (0.7-1.3) 09/04/24 02:09
Glucose 95 mg/dl (70-99) 09/04/24 02:09
Troponins
09/01/24 09/02/24 09/03/24
16:06 08:47 03:45
Troponin I 0.018 0.030 0.015
Vital Signs and I&O:
Vital Signs
Temp Pulse Resp BP Pulse Ox
98.0 F 97 20 144/82 99
09/04/24 08:28 09/04/24 02:00 09/04/24 08:28 09/04/24 02:00 09/04/24 08:28
Vital Signs
Temp Pulse Resp BP Pulse Ox
98.0 F 97 20 144/82 99
09/04/24 08:28 09/04/24 02:00 09/04/24 08:28 09/04/24 02:00 09/04/24 08:28
Intake & Output
09/02/24 09/03/24 09/04/24 09/05/24
07:59 07:59 07:59 07:59
Intake Total 640 / 640 400 / 400
Balance 640 / 640 400 / 400
Physical Exam
Physical Exam
GEN: No distress, awake, alert, oriented x3. sitting in chair
HEENT: supple, anicteric, mmm, eomi
LUNGS: CTA B/L, no wheezes/rales
CV: Reg, S1/S2, no murmur
ABD: soft, BS+, NT/ND
EXT: No cyanosis, clubbing, edema
NEURO: Gross non-focal
SKIN: Warm, pink, dry. No rash
--- NOTE | 2024-09-04 09:04 | W.PN.HOSP.TC ---
Addendum entered and electronically signed by Perry Gould DO 09/04/24 13:46:
Correction: Chronic heart failure reduced EF.
Addendum entered and electronically signed by Perry Gould DO 09/04/24 12:44:
Cardiology okay with discharge. Outpatient follow-up.
Original Note:
Today's Communication/Plan
-
Await cardiology input
Assessment / Plan
Assessment / Plan
Gen-AAOx3, NAD
HEENT-NC, AT, anicteric, clear oral mm
Neck-supple
CV-reg, no M, +S1/S2
Lungs-clear B/L
Abd-soft, NT, ND
Ext-no edema
Musculoskeletal-no cyanosis, clubbing
Skin-warm and dry
Neuro-grossly non-focal
Psych-calm, cooperative
Syncope -due to recurrent ventricular fibrillation. ICD shocked. Continue Tikosyn 500 mg every 12, monitor QTc per cardiology. Outpatient EP follow-up. Discussed with cardiology, Dr. Flores.
History of of PVC induced ventricular fibrillation requiring ICD shocks
MCKINLEY -possibly due to volume depletion. MCKINLEY resolved. Resumed lisinopril.
Essential hypertension -blood pressure running high. Resumed lisinopril.
Nonischemic cardiomyopathy/chronic heart failure preserved EF -stable.
History of mitral valve repair -2018.
GASTON -continue BiPAP nightly and with naps.
Obesity due to excess calories
Full code
Dispo -potential discharge today if cleared by cardiology.
Anticipated Discharge: Today
Subjective/Interval History
-
Date of Service: September 04, 2024
Patient seen and examined. No complaints.
Objective Data
-
Labs:
Laboratory Results
09/04/24
02:09
Sodium 140
Potassium 4.3
Chloride 105
Carbon Dioxide 26
BUN 19
Creatinine 0.8
Glucose 95
Calcium 8.9
Vital Signs:
Vital Signs
Temp Pulse Resp BP Pulse Ox
98.0 F 97 20 144/82 99
09/04/24 08:28 09/04/24 02:00 09/04/24 08:28 09/04/24 02:00 09/04/24 08:28
I&O
09/03/24 09/04/24 09/05/24
06:59 06:59 06:59
Intake Total 400 / 400
Balance 400 / 400
Review of Systems
-
History Source: Patient
All other systems: Reviewed and negative
[2024-09-04 11:37] VITALS: BP 136/85
--- NOTE | 2024-09-04 11:39 | PN.CDI ---
CDI
- -
CDI:
Physician Documentation Request
Admit Date: 09/01/24 20:58
Dear Doctor Luis Fernando,
Clinical Indicators:
Patient admitted with syncope due to VF with ICD shock.
09/01 H & P, 'chr HFrEF'
09/04 Cardiology PN, 'echo 09/02 with EF back down to 30-35%. possibly secondary to stunned myocardium from recent shock.'
09/04 PN, 'chronic heart failure preserved EF'
Please clarify the most likely type of CHF you are evaluating, treating or monitoring:
HFrEF
HFpEF (documentation complete)
Other, please specify
Use of terms such as suspected, likely, concern for, or probable (associated with a specific diagnosis that is being evaluated, monitored, or treated as if it exists) are acceptable and can be coded in the inpatient setting, when documented at the
time of discharge.
Thank you,
Florida Gaines RN BSN
CDI Specialist
available via tiger text
Please use your independent medical judgment in providing your response.
--- NOTE | 2024-09-04 12:26 | CM ---
CM following for DC planning needs.
Observed pt. ambulatory ad mirna. Talked to pt. in the hallway. Pt. feels well, plans for DC today. He offers no concerns or needs @ this time.
Plan: HOME, no needs.
--- NOTE | 2024-09-04 12:46 | W.DS.TRANS ---
DC Summary - Adolescent Coordinator
-
Discharge Instructions:
Discharge Diagnosis/Procedures Syncope, ventricular fibrillation, acute kidney
injury
Diet Low Cholesterol,Low Fat
Activity As tolerated
Driving Restrictions Not until seen by your Dr
Bathing Restrictions None
Blood Work BMP in 1 week
Instructions:
Stand-Alone Forms:
Changes to Home Medications: No
Discharge Medications:
DC Medications w/original date entered in [email or web address]
tamsulosin 0.4 mg capsule (Flomax) 0.4 mg PO BID Urinary issue 04/18/21
Lactobac no.2-Bifidobac no.1-S. thermo 112.5 billion cell capsule (Visbiome) 1 cap PO DAILY 09/01/24
aspirin 325 mg tablet 162.5 mg PO DAILY 09/01/24
atorvastatin 10 mg tablet 10 mg PO DAILY 09/01/24
bacitracin 500 unit/gram topical ointment 1 applic topical DAILYPRN PRN skin spots 09/01/24
finasteride 5 mg tablet 5 mg PO DAILY 09/01/24
lisinopril 20 mg tablet 20 mg PO BID 09/01/24
metoprolol succinate 50 mg tablet,extended release 24 hr 50 mg PO BID 09/01/24
omega 8-gat-smd-fish oil 1,000 mg (120 mg-180 mg) capsule (Fish Oil) 1 cap PO DAILY 09/01/24
turmeric 400 mg capsule 400 mg PO BID 09/01/24
dofetilide 500 mcg capsule 500 mcg PO Q12 #60 caps 09/04/24
spironolactone 25 mg tablet 12.5 mg (1/2 x 25 mg) PO DAILY #30 tabs 09/04/24
Home Medication Changes
Pending Results: No
[2024-09-04] MEDS: ALDACTONE 12.5 MG PO (13:03)
--- NOTE | 2024-09-04 14:40 | PTCARENOTE ---
Pt being discharged, requests Tikosyn script sent to his mail order pharmacy. Paper script obtained from Abby Mcginnis and faxed to his pharmacy. Pt states he has enough Tikosyn at home to hold him over until mail order Tikosyn arrives.
== END 2024-09-04 14:15 | disposition home or self-care (01) | DRG 309 ==
LOC: IVU 20:58
PROVIDERS: Physician Assistant; Physician Assistant Medical; Registered Nurse; ADMITTING PHYSICIAN Internal Medicine; ATTENDING PHYSICIAN Hospitalist; CONSULT PHYSICIAN Nuclear Medicine Nuclear Cardiology; EMERGENCY PHYSICIAN Emergency Medicine; FAMILY PHYSICIAN Family Medicine
PROC: 5A09357 Assistance with Respiratory Ventilation, Less than 24 Consecutive Hours, Continuous Positive Airway Pressure (ICD-10-PCS; 2024-09-01)
DX: I49.01 Ventricular fibrillation (principal); I50.22 Chronic systolic (congestive) heart failure; S06.9X9A Unspecified intracranial injury with loss of consciousness of unspecified duration, initial encounter; N17.9 Acute kidney failure, unspecified; I11.0 Hypertensive heart disease with heart failure; I27.20 Pulmonary hypertension, unspecified; I08.0 Rheumatic disorders of both mitral and aortic valves; E66.09 Other obesity due to excess calories; Z68.32 Body mass index [BMI] 32.0-32.9, adult; E78.00 Pure hypercholesterolemia, unspecified; I25.10 Atherosclerotic heart disease of native coronary artery without angina pectoris; G47.33 Obstructive sleep apnea (adult) (pediatric); I42.8 Other cardiomyopathies; I44.7 Left bundle-branch block, unspecified; N40.1 Benign prostatic hyperplasia with lower urinary tract symptoms; R33.8 Other retention of urine; R55 Syncope and collapse; W19.XXXA Unspecified fall, initial encounter; Z79.82 Long term (current) use of aspirin; Z79.899 Other long term (current) drug therapy; Z86.79 Personal history of other diseases of the circulatory system; Z95.810 Presence of automatic (implantable) cardiac defibrillator; Z82.49 Family history of ischemic heart disease and other diseases of the circulatory system; Z96.653 Presence of artificial knee joint, bilateral
CPT/HCPCS: 70450; 71046; 80048; 80053; 83735; 84484; 85025; 85027; 93005; 93306; 99285; Q9950

== ENCOUNTER 2024-11-12 15:46 | Emergency (ER) | payer MEDICARE, OTHER, SELFPAY ==
[2024-11-12 15:52] VITALS: BP 158/84
--- NOTE | 2024-11-12 16:08 | ED.GENMED ---
ED Provider Triage
<Luciano Morgan PA-C - Last Filed: 11/12/24 16:10>
-
Patient seen by provider in Triage?: Seen in Triage
74-year-old male presents complaining of persistent dysfunction to the left side of his face and left arm worsening over 10 days. He also notes a headache. He was here in August for a concussion and the presumed AICD activation. He has had some
concussive symptoms symptoms then however his symptoms over the past 10 days are newer. Family noticed a facial droop and that he has been clumsy with his left hand. Patient denies chest pain
On exam in triage he does have a subtle left facial droop and his left arm does not seem to function well. Vital signs are stable. Concern for possible stroke that happened 10 days ago for subdural versus intracranial hemorrhage otherwise
Started workup with labs EKG troponin and CT of head
Patient was evaluated by medical rider triage but does warrant further
History of Present Illness
<Luciano Morgan PA-C - Last Filed: 11/12/24 16:10>
General
Chief Complaint: Dizziness
Time Seen by Provider: 11/12/24 18:44
<Coty Hauser MD - Last Filed: 11/12/24 22:37>
General
Source: patient
Exam Limitations: none
Nursing documentation reviewed up to this point in time: agreed with
History of Present Illness
History of Present Illness:
The patient is a 74-year-old man with a past medical history of high blood pressure and pacemaker defibrillator who reports that this past August, he was shocked by his defibrillator, causing him to fall on his face. He reports that he came to
[facility] underwent a CAT scan of his head which was read as negative. Patient reports that since this fall, he has had ongoing dizziness and some headaches. Patient reports that about a month later during mid September, he was standing
up on a ladder and hit the top of his head on a metal beam. He reports at that time there was no loss of consciousness and he did not go to the hospital. Patient reports that his dizziness and headaches have persisted. He reports that his family
feels over the last few weeks, he is now having cognitive abnormalities like forgetting how to do simple things. Patient reports that he was evaluated by his primary care doctor and noted to have right arm weakness and was told to go to the ED.
Patient denies being on any aspirin, Plavix or anticoagulation.
Past History
<Luciano Morgan PA-C - Last Filed: 11/12/24 16:10>
Past History
ED Past Medical History: Arrthythmia, CHF, HTN, Hypercholesterolemia, Valvular disease and Other (sleep apnea, BPH with intermittent urine retention requiring Bravo catheter)
ED Past Surgical History: Cardiac and Other (Hernia repair, mitral valve repair, VT ablation)
Social History
Tobacco: Non-smoker
Alcohol: None
Drug: None
Personal:
Living: with family
Employment: Employed
Family History
Family History: Other (Noncontributory)
Review of Systems
<Coty Hauser MD - Last Filed: 11/12/24 22:37>
Review of Systems
Allergies reviewed?: Yes
All Other Systems: ROS reviewed and negative except as documented in HPI and ROS
Constitutional: Reports no symptoms
EENT: Reports other (Floaters in eyes)
Respiratory: Reports no symptoms
Cardiac: Reports no symptoms
ABD/GI: Reports no symptoms
: Reports no symptoms
Musculoskeletal: Reports no symptoms
Skin: Reports no symptoms
Neurological: Reports dizzy and headache
Endocrine: Reports no symptoms
Hematologic/Lymphatic: Reports no symptoms
Psychiatric: Reports no symptoms
Phy Exam
<Coty Hauser MD - Last Filed: 11/12/24 22:37>
Physical Exam
Physical Exam:
Physical Exam
General: no apparent distress, not acutely ill. Conversational, joking, smiling. Walking around emergency department
Neck: supple. No meningismus. Nontender C-spine
Heart: s1/s2 regular rate and rhythm,
Lungs: no acute respiratory distress. clear bilaterally
Abdomen: normal bowel sounds. not tender. no CVAT
Neuro: alert and orientedx3. no focal neurological deficits. Face looks like a left facial droop. Extraocular muscles intact. PERRL. Normal finger-nose. Slight drift in right upper extremity, otherwise 5 out of 5
strength in all extremities.
Skin: no rash
Psychiatric: well kept. interactive and cooperative
Extremities: no edema. no calf tenderness. negative homans. good distal pulses
Course
<Luciano Morgan PA-C - Last Filed: 11/12/24 16:10>
Orders/Labs/Results
Orders:
Orders
11/12/24 15:55
EKG [Electrocardiogram (*1)] Urgent
Reason for Study: Atrial Fibrillation
EKG- Treatment ONCE
11/12/24 16:05
CT Head W/o Iv Contrast Urgent
Comment:
Reason For Exam: left sided facial droop and left arm dysfunction
11/12/24 18:54
Complete Blood Count/With Diff Urgent
Comprehensive Metabolic Panel Urgent
PTT Urgent
Prothrombin Time Urgent
Troponin I Urgent
Abnormal Lab Results
11/12/24
18:54
MCV 94.1 H fL
(80.0-94.0)
MCH 31.2 H pg
(27.0-31.0)
Absolute Monos (auto) 0.8 H 10^3/uL
(0.1-0.6)
Monocytes % 9.7 H %
(1.7-9.3)
BUN 23 H mg/dl
(9-20)
12/26/24 18:54
11/12/24 18:54
Vital Signs
Initial and Last Documented VS:
Initial Vital Signs
Temp Pulse Resp BP Pulse Ox
97.9 F 57 20 158/84 99
11/12/24 15:52 11/12/24 15:52 11/12/24 15:52 11/12/24 15:52 11/12/24 15:52
Last Documented Vital Signs
Temp Pulse Resp BP Pulse Ox
97.9 F 82 21 132/67 96
11/12/24 15:52 11/12/24 22:15 11/12/24 22:15 11/12/24 22:00 11/12/24 22:15
<Coty Hauser MD - Last Filed: 11/12/24 22:37>
Orders/Labs/Results
Orders:
Orders
11/12/24 15:55
EKG [Electrocardiogram (*1)] Urgent
Reason for Study: Atrial Fibrillation
EKG- Treatment ONCE
11/12/24 16:05
CT Head W/o Iv Contrast Urgent
Comment:
Reason For Exam: left sided facial droop and left arm dysfunction
11/12/24 18:54
Complete Blood Count/With Diff Urgent
Comprehensive Metabolic Panel Urgent
PTT Urgent
Prothrombin Time Urgent
Troponin I Urgent
Abnormal Lab Results
11/12/24
18:54
MCV 94.1 H fL
(80.0-94.0)
MCH 31.2 H pg
(27.0-31.0)
Absolute Monos (auto) 0.8 H 10^3/uL
(0.1-0.6)
Monocytes % 9.7 H %
(1.7-9.3)
BUN 23 H mg/dl
(20)
11/12/24 18:54
12/26/24 18:54
Vital Signs
Initial and Last Documented VS:
Initial Vital Signs
Temp Pulse Resp BP Pulse Ox
97.9 F 57 20 158/84 99
11/12/24 15:52 11/12/24 15:52 11/12/24 15:52 11/12/24 15:52 11/12/24 15:52
Last Documented Vital Signs
Temp Pulse Resp BP Pulse Ox
97.9 F 82 21 132/67 96
11/12/24 15:52 11/12/24 22:15 11/12/24 22:15 11/12/24 22:00 11/12/24 22:15
<Coty Hauser MD - Last Filed: 11/12/24 22:37>
*Radiology
Radiology exam reviewed: preliminary read by ED provider (CAT scan reviewed by me. Large right old subdural hematoma with some fresh blood) and radiology read reviewed
*Pulse Oximetry
Patient hypoxic: no
*EKG
Interpreted by ED Provider?: NA
*Maintenance Repairer Interpretation
Rate: normal
Interpretation: normal
Rhythm: sinus
*Critical Care Note
Total Time (30-74mins, 75-104mins- exclusive of procedures): 45 minutes of critical ca
comment:
45 minutes critical care given to patient including recurrent assessments of his mental status, counseling the patient and his family in regards to his condition, reviewing his CAT scan from [facility] as well as from this past August as well as
reviewing his lab work and speaking to neurosurgery and trauma attending at [place]
Data Reviewed
Review of Other/Old Records Reveals: Radiology Studies (CT head done September 01, 2024 shows no acute abnormality) and Discharge Summary (Discharge summary reviewed from August 2024 when patient was admitted for V-fib)
Source: patient and family
<Coty Hauser MD - Last Filed: 11/12/24 22:37>
Patient Management
Social determinants of health affecting care: Living situation and Strong social support
Discussion with other providers: Other (Case discussed with both trauma as well as neurosurgery at [facility])
Escalation/DeEscalation of care consider admission/obs:
Given patient's bilateral subdural hematomas with midline shift, decision made to transfer patient to [facility] under the service of Dr. Janessa Serrano
<Coty Hauser MD - Last Filed: 11/12/24 22:37>
Update Note
Update Note:
Patient remains well and comfortable
ED Attending Note
<Luciano Morgan PA-C - Last Filed: 11/12/24 16:10>
-
Portions of this chart may have been created with voice recognition software.� Occasional wrong word or��sound alike� substitutions may have occurred due to the inherent limitations of voice recognition software.
Discharge Plan
Departure
Patient Disposition: Acute Care Hospital
Date of Disposition: 11/12/24
Time of Disposition: 19:37
Patient with high blood pressure during this ER visit?: Yes
Condition: Fair
Covid-19: Not Applicable
Discharge Problem:
Bilateral subdural hematomas
Prescriptions:
No Action
tamsulosin [Flomax] 0.4 MG capsule
0.4 mg PO BID
atorvastatin 10 mg Tablet
10 mg PO DAILY
aspirin 325 mg Tablet
162.5 mg PO DAILY
metoprolol succinate 50 mg Tablet Extended Release 24 Hr
50 mg PO BID
lisinopril 20 mg Tablet
20 mg PO BID
bacitracin 500 unit/gram Ointment
1 applic TOPICAL DAILYPRN PRN (Reason: skin spots)
finasteride 5 mg Tablet
5 mg PO DAILY
Visbiome 112.5 billion cell Capsule
1 cap PO DAILY
omega [id number]-uus-fish oil [Fish Oil] 1,000 (120-180) mg Capsule
1 cap PO DAILY
turmeric 400 mg Capsule
400 mg PO BID
spironolactone 25 mg Tablet
12.5 mg PO DAILY Qty: 30 0RF
dofetilide 500 mcg Capsule
500 mcg PO Q12 Qty: 60 0RF
Referrals:
Mohini Moser MD [Family Provider] -
Hospital Transfer
Other hospital: [facility]
I certify that the patient requires transfer: Yes
Discussed case with accepting physician: Janessa Serrano
Reason for transfer: specialties available
Interventions
Interventions:
*Risk Screen - Suicide Last Done: 11/12/24 15:52
*General Assessment Last Done: 11/12/24 15:52
*Neglect/Abuse Screening Last Done: 11/12/24 15:52
ED- Fall Risk Assessment Last Done: 11/12/24 18:51
*ED COVID-19 Vaccine History Last Done: 11/12/24 18:51
ED- Neurological Assessment Last Done: 11/12/24 18:52
ED- Cardiac Assessment Last Done: 11/12/24 18:58
Discharge Date and Time
Print Language: [place]
[2024-11-12 18:51] VITALS: BMI 32.3
[2024-11-12 19:00] VITALS: BP 167/99
[2024-11-12 19:01] LABS: % Basophils 0.5 % (0-2); % Eosinophils 1.6 % (0-6); % Immature Granulocytes 0.5 % (0-0.5); % Lymphocytes 26.5 % (20.5-51.1); % Monocytes 9.7 % (1.7-9.3); % Neutrophils 61.2 % (42.2-75.2); Absolute Eosinophils 0.1 10^3/uL (0-0.7); Absolute Monocytes 0.8 10^3/uL (0.1-0.6); Absolute Neutrophils 4.7 10^3/uL (1.4-6.5); Hematocrit 44.7 % (39.0-52.0); Hemoglobin 14.8 g/dL (13.0-18.0); Mean Corp Hgb Conc. 33.1 g/dL (33.0-37.0); Mean Corpuscular Hgb 31.2 pg (27.0-31.0); Mean Corpuscular Volume 94.1 fL (80.0-94.0); Mean Platelet Volume 9.3 fL (7.4-10.4); Nucleated Red Blood Cells % 0 % (-); Platelet Count 162 10^3/uL (130-400); Red Blood Cell Count 4.75 10^6/uL (4.70-6.10); Red Cell Dist. Width 12.9 % (11.5-14.5); White Blood Cell Count 7.7 10^3/uL (4.8-10.8)
[2024-11-12 19:11] LABS: PT 13.7 Sec (11.4-14.6)
[2024-11-12 19:12] LABS: APTT 29.2 Sec (23.4-35.0)
[2024-11-12 19:29] LABS: Troponin I 0.018 ng/ml
[2024-11-12 19:40] LABS: ALT (SGPT) 23 U/L (0-50); AST (SGOT) 25 U/L (17-59); Albumin 4.3 g/dl (3.5-5.0); Alkaline Phosphatase 65 U/L (38-126); Blood Urea Nitrogen 23 mg/dl (9-20); Calcium 9.4 mg/dl (8.4-10.2); Carbon Dioxide 30 mmol/L (22-30); Chloride 103 mmol/L (98-107); Estimated Creatinine Clearance 73 ml/min; Glucose 96 mg/dl (70-99); Potassium 4.1 mmol/L (3.5-5.1); Sodium 140 mmol/L (135-145); Total Bilirubin 0.5 mg/dl (0.2-1.3); Total Protein 6.9 g/dl (6.3-8.2); eGFR > 60.00
[2024-11-12 20:00] VITALS: BP 144/85
[2024-11-12 21:00] VITALS: BP 153/74
[2024-11-12 22:00] VITALS: BP 132/67
[2024-11-12 23:00] VITALS: BP 138/81
[2024-11-13] VITALS: BP 150/95
== END 2024-11-13 00:28 | disposition short-term general hospital (02) ==
LOC: EMR 15:46
PROVIDERS: Physician Assistant; EMERGENCY PHYSICIAN Emergency Medicine; FAMILY PHYSICIAN Family Medicine
DX: S06.5XAA Traumatic subdural hemorrhage with loss of consciousness status unknown, initial encounter (principal); W22.8XXA Striking against or struck by other objects, initial encounter; I11.0 Hypertensive heart disease with heart failure; I50.9 Heart failure, unspecified; E78.00 Pure hypercholesterolemia, unspecified; G47.30 Sleep apnea, unspecified; N40.0 Benign prostatic hyperplasia without lower urinary tract symptoms
CPT/HCPCS: 99284; 70450; 80053; 84484; 85025; 85610; 85730; 93005

== ENCOUNTER → 2025-07-24 09:48 | Outpatient (REF) | payer MEDICARE, OTHER, SELFPAY | LOC: RAD 09:48 | PROVIDERS: ATTENDING PHYSICIAN Internal Medicine Cardiovascular Disease; FAMILY PHYSICIAN Family Medicine | DX: S06.5XAA Traumatic subdural hemorrhage with loss of consciousness status unknown, initial encounter (principal) | CPT/HCPCS: 70450 ==